=== PATIENT | female | born 1935 | race African-American/Black ===

== ENCOUNTER 2018-01-02 17:02 | Inpatient (IN) | payer OTHER ==
[2018-01-02] VITALS (8 sets, daily range): BP systolic 93–150; BP diastolic 54–73
[~2018-01-02] VITALS: Ht 165.1 cm; Wt 105.4 kg
--- NOTE | ~2018-01-02 | 2DMMODE ---
[facility] [address] [place] [address] 2 D/M-MODE ECHOCARDIOGRAM Name: SHANELLFLORENCE J Room #: 244-P ADM IN .R.#: [id number] Admission: 01/02/18 Attend Phys: Bryant Brandt MD Discharge: Date of : 35 Date of Service: 01/03/18 1419 Report #: [id number] THIS REPORT FOR: //name// APPROVED REPORT Study performed: 01/03/2018 08:11:27 EXAM: Comprehensive 2D, Doppler, and color-flow Echocardiogram Patient Location: ICU Room #: 244 Status: on-call BSA: 2.08 HR: 64 bpm BP: 130/57 mmHg Rhythm: NSR^Irregular Other Information Study Quality: Adequate Indications Afib. Hx: MT, CHF, DM 2D Dimensions RVDd: 45.05 mm IVSd: 12.58 (7-11mm) LVOT Diam: 20.68 (18-24mm) LVDd: 38.56 mm PWd: 12.24 (7-11mm) Ascending Ao: 34.74 (22-36mm) LVDs: 25.59 (25-40mm) Aortic Root: 34.38 mm Volumes Left Atrial Volume (Systole) Single Plane 4CH: 56.88 mL Single Plane 2CH: 83.94 mL LA ESV Index: 36.00 mL/m2 Aortic Valve AoV Peak Wesley.: 1.48 m/s AO Peak Gr.: 8.76 mmHg LVOT Max P.02 mmHg LVOT Max V: 1.00 m/s AMADA Vmax: 2.27 cm2 Mitral Valve E/A Ratio: 0.9 MV Decel. Time: 244.50 ms MV E Max Wesley.: 1.00 m/s [facility] [address] [place] [address] 2 D/M-MODE ECHOCARDIOGRAM Name: FLORENCE REECE Room #: 244-P [facility]#: [id number] Admission: 01/02/18 Attend Phys: Bryant Brandt MD Discharge: Date of : 35 Date of Service: 01/03/18 1419 Report #: [id number] MV A Wesley.: 1.16 m/s MV PHT: 70.90 ms IVRT: 73.82 ms Pulmonary Valve PV Peak Wesley.: 0.61 m/s PV Peak Gr.: 1.47 mmHg Tricuspid Valve TR Peak Wesley.: 3.32 m/s RAP Estimate: 15.00 mmHg TR Peak Gr.: 44.07 mmHg PA Pressure: 59.00 mmHg Left Ventricle The left ventricle is normal size. There is normal LV segmental wall motion. Mild concentric left ventricular hypertrophy. Left ventricular systolic function is normal. LVEF is 55%. Mild diastolic dysfunction is present (impaired relaxation pattern). Right Ventricle Right ventricle is dilated. Right ventricle is mildly hypokinetic. Atria Left atrium is dilated. Right atrium is dilated. Aortic Valve The aortic valve is normal in structure. Aortic valve leaflets are mildly thickened. No aortic regurgitation is present. There is no aortic valvular stenosis. Mitral Valve The mitral valve is normal in structure. There is no mitral valve regurgitation noted. No evidence of mitral valve stenosis. Tricuspid Valve The tricuspid valve is normal in structure. Mild to moderate tricuspid regurgitation. Estimated PAP is 55-60mmHg. Pulmonic Valve The pulmonary valve is normal in structure. Trace pulmonic regurgitation. Great Vessels The aortic root is normal in size. The ascending aorta is normal in size. IVC is dilated and collapses <50% with inspiration. [facility] [address] [place] [address] 2 D/M-MODE ECHOCARDIOGRAM Name: FLORENCE REECE Room #: 244-P [facility] IN ..#: [id number] Admission: 01/02/18 Attend Phys: Bryant Brandt MD Discharge: Date of : 35 Date of Service: 01/03/18 1419 Report #: [id number] Pericardium There is no pericardial effusion. <Conclusion> The left ventricle is normal size. Mild concentric left ventricular hypertrophy. Left ventricular systolic function is normal. LVEF is 55%. Right ventricle is dilated. Right ventricle is mildly hypokinetic. Left atrium is dilated. Right atrium is dilated. The aortic valve is normal in structure. Aortic valve leaflets are mildly thickened. No aortic regurgitation is present. There is no aortic valvular stenosis. The mitral valve is normal in structure. Mild to moderate tricuspid regurgitation. Estimated PAP is 55-60mmHg. IVC is dilated and collapses <50% with inspiration. There is no pericardial effusion. <ELECTRONICALLY SIGNED> By: Alber Santana MD 01/03/18 1419 141 141 Alber Santana MD /INF
--- NOTE | ~2018-01-02 | HC ---
[facility] [place] [address] CONSULTATION Name: FLORENCE REECE Room #: 244-P ADM IN M.R.#: [id number] Admission: 01/02/18 Attend Phys: Bryant Brandt MD Discharge: Date of : 35 Report #: [id number] THIS REPORT FOR: //name// CC: DEYANIRA Lozano REASON FOR CONSULTATION: The patient is an 82-year-old woman who presented with marked weakness and evidence of jaundice and dilated biliary tree. HISTORY OF PRESENT ILLNESS: This 82-year-old woman was seen in the Emergency Department. She was brought in by her family today because of generalized weakness. They have noted that over the past week or so, she has been much weaker than usual. She is not eating. She is complaining of more back pain than usual. She has not gotten out of bed in the past several days. They also report she has been confused. They note that she did have some chills earlier in the week. Her urine has been darker in color. She was brought to the Emergency Room at [facility] and evaluated. She was noted to be in atrial fibrillation with a rapid ventricular rate. She was noted to be jaundiced. LABORATORY DATA: Reveal a sodium of 139, potassium of 3.5, CO2 of 22. BUN is 44. In 2010, BUN was 33. Creatinine is 42. In 2010, her creatinine was 1.9. Her glucose is 121, AST of 115, ALT of 122, total bilirubin 11.1, alkaline phosphatase of 383. Albumin depressed at 2.4. Lactic acid is 6.8. Total CPK normal at 256. Troponin elevated at 2.1. BNP of 46,284. Coags were not done. White count of 33.9, platelet count of 81,000, hemoglobin 11.8 with an MCV of 91.8. TSH of 1.58. Urinalysis pending at this time. Blood cultures have been drawn. CT scan of the abdomen and pelvis was done without contrast. There are linear infiltrates in both lung bases, possibly representing atelectasis. There is a hyperdense structure in the head of the pancreas measuring 2 cm, which was thought to be within the common bile duct and may be a common bile duct stone. There is a marked intrahepatic and extrahepatic ductal dilatation with bile duct dilatation of 2.5 cm. Gallbladder is absent. Pancreas poorly evaluated. Spleen is normal. There is diverticulosis, but no evidence of diverticulitis. Uterus and appendix were thought to be surgically absent. 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 Also, note that much of history provided by the son. PAST MEDICAL HISTORY: Between the son and the patient, she notes to have a history of heart disease and she has had two heart attacks with the last in 2006, sons is not sure, but the patient thinks that she did have intracoronary stents placed. She may have been on Coumadin in the past, but has not been on [address] [address] CONSULTATION Name: FLORENCE REECE Room #: 244-P [facility] IN M.R.#: [id number] Admission: 01/02/18 Attend Phys: Bryant Brandt MD Discharge: Date of : 35 Report #: [id number] Coumadin recently. She is not sure if she has had AFib in the past. She has had some pulmonary problems in the past. She has a history of chronic kidney disease. She also has high blood pressure. She does have diabetes, but is currently on no medication and is diet controlled. She also has a history of neuropathy. In addition, she has a history of rheumatoid arthritis. Also, the patient reports that she has never previously had liver problems or hepatitis or jaundice. She has noted her urine has been dark orange for about a week or so and she has not noted this color before. PAST SURGICAL HISTORY: Cholecystectomy, appendectomy, hysterectomy. ALLERGIES: PENICILLIN. HOME MEDICATIONS: The patient cannot tell me her medicines, but the list obtained by the ER staff currently in the computer database includes amlodipine 5 mg daily, aspirin 81 mg daily, atorvastatin 40 mg at bedtime, benazepril 1 daily, Plavix 75 mg daily, fish oil 1000 mg daily, folic acid 1 mg daily, furosemide 40 mg daily, hydrocodone 10/325 four times a day as needed for pain, levothyroxine 25 mcg daily, lorazepam 0.5 mg 3 times daily, methotrexate 2.5 mg once weekly, Bystolic 10 mg daily, nitroglycerin as needed, Omeprazole 20 mg twice daily, Lyrica 1 tablet twice daily, vitamins, Zanaflex 4 mg at bedtime, Ambien 10 mg at bedtime. FAMILY HISTORY: The patient had 5 children. One daughter of lymphoma, another daughter of cancer and a son possibly of cancer and there was a mention of TB. SOCIAL HISTORY: Lives with son, but recently has been staying with her daughter. She quit smoking many years ago. She does not consume alcohol. REVIEW OF SYSTEMS: GENERAL: No change in weight. Family reported she had fevers earlier this week, but did not take her temperature. She had chills this week. HEENT: No change in vision, hearing or sores in the mouth. PULMONARY: Some shortness of breath. No history of pneumonia or tuberculosis. CARDIOVASCULAR: Previous heart disease. No chest pain or chest tightness at this time. GASTROINTESTINAL: No nausea or vomiting. No diarrhea or constipation. No rectal bleeding. She has not had abdominal pain. GENITOURINARY: Some burning with urination recently. GYNECOLOGIC: Previous hysterectomy. MUSCULOSKELETAL: Pain in back and multiple joints. SKIN: Sores on her upper extremities which has been chronic problem. ENDOCRINE: She has diabetes and thyroid disease. HEMATOLOGIC: No previous bleeding, bruising or malignancies. [facility] [address] [place] [address] CONSULTATION Name: FLORENCE REECE Room #: 244-P [facility] IN [facility]#: [id number] Admission: 01/02/18 Attend Phys: Bryant Brandt MD Discharge: Date of : 35 Report #: [id number] PSYCHIATRIC: Anxiety. PHYSICAL EXAMINATION: GENERAL: The patient is an obese woman who is awake. She is fairly alert, but appears to be fatigued, sometimes becomes fatigued just answering question. VITAL SIGNS: Blood pressure reported was 122/5 at her bedside, systolic in the 110s, heart rate on the monitor is AFib and rates as high as 145. She is in no acute distress. HEENT: She has marked bilateral icterus. Oropharynx moderately dry mucous membranes. NECK: Supple, without thyromegaly. CHEST: Clear anteriorly. HEART: Tachycardic, irregular rhythm. S1, S2. ABDOMEN: Normal bowel sounds, soft. I do not appreciate significant tenderness to palpation in the right upper quadrant. Abdomen is obese, but I did not appreciate any masses. RECTAL: Not done. EXTREMITIES: With 1+ bilateral pedal edema, nontender to palpation. SKIN: Reveals that she has excoriations on her upper extremities. The son notes that she picks the spots on her arms and this has been a chronic problem LABORATORY DATE AND RADIOLOGY: As noted above. ASSESSMENT: 1. Biliary sepsis. 2. Dilated biliary tract with evidence of a common bile duct stone. 3. Chronic kidney disease with likely acute injury. 4. Diabetes, diet controlled. 5. Hypothyroidism. 6. Rheumatoid arthritis, on methotrexate. COMMENTS: The patient very ill at this point in time. She will likely need intervention, but will need to stabilize her heart rhythm and blood pressure. RECOMMENDATIONS: 1. Agree with ICU care. 2. Agree with broad-spectrum antibiotics. Discussed with ER physician who has been in contact with Dr. Alli Wagner. 3. Monitor labs. 4. Review radiologic studies with radiologist. 5. Consider ERCP, but will need to have her cardiovascular status stabilized and cardiology clearance prior to any procedures requiring sedation and alternative with the percutaneous transhepatic chol[place] [address] CONSULTATION Name: FLORENCE REECE Room #: 244-P [facility] IN [facility].#: [id number] Admission: 01/02/18 Attend Phys: Bryant Brandt MD Discharge: Date of : 35 Report #: [id number] addressing bile duct stone at a later date. 6. Monitor coags. <ELECTRONICALLY SIGNED> By: Jigar Esparza MD 01/03/18 1553 2205 0030 Jigar Esparza MD /nt
--- NOTE | ~2018-01-02 | EKG ---
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: [facility] : 1935 Requested By: Alli German Order Number: [id number] MD: Alber Santana Measurements Intervals [place] Rate: 150 P: 30 AL: 147 QRS: -3 QRSD: 93 T: -24 QT: 301 QTc: 476 Interpretive Statements Supraventricular tachycardia, likely atrial tachycardia Low voltage, precordial leads Left ventricular hypertrophy Borderline T abnormalities, diffuse leads Compared to ECG 11/09/2009 07:47:58 Low QRS voltage now present Left ventricular hypertrophy now present Sinus rhythm no longer present Possible ischemia no longer present T-wave abnormality still present Electronically Signed On 01-04-2018 20:20:19 CONTRACT SERVICEMAN by Alber Santana [email or web address] <ELECTRONICALLY SIGNED> By: Alber Santana MD 01/04/182019 173 173 Alber Santana MD /EPI
--- NOTE | ~2018-01-02 | EKG ---
[address] [address] ELECTROCARDIOGRAM REPORT Name: SHANELLFLORENCE Room #: 244-P ADM IN M.R.#: [id number] Admission: 01/02/18 Attend Phys: Bryant Brandt MD Discharge: Date of : 35 Report #: [id number] THIS REPORT FOR: //name// [facility] Test Date: 2018-01-04 Test Time: 09:29:58 Pat Name: FLORENCE REECE Department: Room: 244 P Gender: F Coun[employer]: akanksha : 1935 Requested By: Bryant Brandt Order Number: [id number] MD: Alber Santana Measurements Intervals [place] Rate: 67 P: 43 [place]: 180 QRS: 6 QRSD: 120 T: -29 QT: 409 QTc: 432 Interpretive Statements Sinus rhythm Atrial premature complex Nonspecific intraventricular conduction delay Probable anterior infarct, age indeterminate Compared to ECG 11/09/2009 07:47:58 Electronically Signed On 01-04-2018 20:48:00 ELEVATED MOTORMAN by Alber Santana [email or web address] <ELECTRONICALLY SIGNED> By: Alber Santana MD 01/04/182047 8 8 Alber Santana MD /FE
--- NOTE | ~2018-01-02 | EKG ---
[address] [address] ELECTROCARDIOGRAM REPORT Name: SHANELLFLORENCE Room #: 244- ADM IN M.R.#: [id number] Admission: 01/02/18 Attend Phys: Bryant Brandt MD Discharge: Date of : 35 Report #: [id number] THIS REPORT FOR: //name// [facility] Test Date: 2018-01-03 Test Time: 13:10:39 Pat Name: FLORENCE REECE Department: Room: 244 Gender: F Log Sorter: BRIANA : 1935 Requested By: Alber Santana Order Number: [id number] MD: Alber Santana Measurements Intervals [place] Rate: 59 P: 29 [place]: 169 QRS: 4 QRSD: 107 T: -23 QT: 465 QTc: 461 Interpretive Statements Sinus rhythm Low voltage, precordial leads Nonspecific T abnormalities, diffuse leads Compared to ECG 11/09/2009 07:47:58 Low QRS voltage now present Possible ischemia no longer present T-wave abnormality still present Electronically Signed On 01-04-2018 20:39:50 COPY AND PRINT ASSOCIATE by Alber Santana [email or web address] <ELECTRONICALLY SIGNED> By: Alber Santana MD 01/04/189 1310 09 Alber Santana MD /EPI
--- NOTE | ~2018-01-02 | HC ---
[facility] [place] [address] CONSULTATION Name: FLORENCE REECE Mango Room #: 244-P [facility] IN M.R.#: [id number] Admission: 01/02/18 Attend Phys: Bryant Brandt MD Discharge: Date of : 35 Report #: [id number] THIS REPORT FOR: //name// CC: Marilee Brandt DATE OF SERVICE: 01/03/2018 REASON FOR CONSULTATION: Evaluate sepsis and cholangitis. HISTORY OF PRESENT ILLNESS: The patient was an 82-year-old who was brought into the Emergency Room with approximately 1 week of general debility with associated anorexia, abdominal discomfort, some confusion, dark urine, intermittent chills. She has had no gross vomiting episodes or diarrhea. Did not describe much abdominal pain. Has a previous history of cholecystectomy several years ago. No history of pancreatitis or underlying liver disease. Brought in through the Emergency Room where she was found to be in atrial fibrillation with rapid ventricular response and hypotensive. She had decreased urine output. Received 3 liters of fluid overnight. Still is oliguric. She was icteric. Placed initially on vancomycin, Levaquin, metronidazole that was switched to meropenem. CT scan of the abdomen and pelvis showed common bile duct stone with biliary duct dilatation. The patient also is on methotrexate for rheumatoid arthritis. REVIEW OF SYSTEMS: CONSTITUTIONAL: As above. EYES: No change in her hearing. No oral mucosal lesions. Denies any rash or skin issues other than neurodermatitis to her upper arms. LYMPHATIC: Negative. PULMONARY: Negative. CARDIOVASCULAR: As above. GASTROINTESTINAL: As above. GENITOURINARY: Negative. JOINT: Arthritis symptoms remain stable. NEUROLOGIC: Negative. PSYCHIATRIC: Negative. HEMATOLOGIC: Negative. ALLERGIES: REPORTS ALLERGY TO PENICILLIN. No recent antibiotics. ALLERGIES: TO PENICILLIN WITH RASH. Does not know if she tolerates cephalosporins. MEDICATIONS: As noted on her APR, which were reviewed. Now on vancomycin and meropenem. PAST MEDICAL HISTORY: Cholecystectomy, appendectomy, hysterectomy, atrial fibrillation, coronary artery disease, chronic kidney disease, hypertension, [facility] [address] [place] [address] CONSULTATION Name: SHANELLFLORENCE Room #: 244-P [facility] IN [facility].#: [id number] Admission: 01/02/18 Attend Phys: Bryant Brandt MD Discharge: Date of : 35 Report #: [id number] diabetes, hypothyroidism, peripheral neuropathy, rheumatoid arthritis. FAMILY HISTORY: Noncontributory. SOCIAL HISTORY: Past smoker, no significant alcohol intake. Lives with her son. PHYSICAL EXAMINATION: GENERAL: The patient is now in the Intensive Care Unit. Oxygen per nasal cannula was in place. She was alert and cooperative and a reasonable historian. She appeared her stated age. She was lying in bed. VITAL SIGNS: Temperature was 99.8, blood pressure 130/57, pulse 69. Maximum temperature was 102.8 earlier last evening. She is on 2 liters of oxygen per nasal cannula. HEENT: Icteric. Mouth without mucositis or lesion. NECK: Supple, with right IJ catheter in place. No JVD or thyromegaly. LUNGS: Clear anteriorly. Few crackles in the bases bilaterally. CARDIOVASCULAR: Heart was regular, without murmur, gallop or rub. ABDOMEN: Obese, tender in the right upper quadrant. No hepatosplenomegaly or mass appreciated. No guarding or rebound. Positive bowel sounds. EXTREMITIES: 1+ peripheral edema in lower extremities. No cyanosis. No palpable adenopathy. SKIN: With several excoriations to her upper arms. Mood was normal. NEUROLOGIC: Cranial nerves intact. Strength in upper and lower extremities was nonfocal. Sensation intact upper and lower extremities. BACK: Spine was midline. No percussion tenderness. LABORATORY STUDIES: Blood cultures, gram-negative bacilli and gram-positive bacilli. Hemoglobin 9.8, platelet count was 65,000, white count 30,000, 86% segs, 9% bands. Sodium 137, potassium 4.5, bicarbonate 23, creatinine 3.5, bilirubin 9.7, alkaline phosphatase 292, AST 89, ALT 84. Urinalysis with positive protein and bilirubin. Lactate initially 6.8, now 1.0. CT scan of the abdomen and pelvis showed common bile duct obstruction with stone and hepatic duct dilatation. IMPRESSION: 1. Acute cholangitis with sepsis, cardiac ischemia, acute kidney injury, disseminated intravascular coagulation. This is due to common bile duct stone. 2. Immunosuppressed on methotrexate for rheumatoid arthritis. 3. Atrial fibrillation with rapid ventricular response along with elevated troponin and BNP, concerning for ischemia. 4. Diabetes. 5. Obesity. 6. Acute on chronic kidney disease. 7. PENICILLIN ALLERGY. [facility] [address] [place] [address] CONSULTATION Name: FLORENCE REECE Room #: 244-P ADM IN M.R.#: [id number] Admission: 01/02/18 Attend Phys: Bryant Brandt MD Discharge: Date of : 35 Report #: [id number] RECOMMENDATION: 1. We will continue ICU support with increased fluid resuscitation. Maintain n.p.o. status. GI service to evaluate for ERCP. If not able to perform, we do percutaneous cholangiogram to relieve obstruction. 2. Control diabetes. 3. Control atrial fibrillation with rapid ventricular response. 4. Cardiovascular, Medicine to evaluate. 5. Control blood glucose levels. 6. Have adjusted her antibiotics for her PENICILLIN ALLERGY. We will continue with drugs adjusted for her renal failure. <ELECTRONICALLY SIGNED> By: Alli Wagner MD 01/04/18 1133 1156 1317 Alli Wagner MD /nt
--- NOTE | ~2018-01-02 | P ---
[facility] [place] [address] PROCEDURE REPORT Name: FLORENCE REECE Room #: 459-P [facility] IN M.R.#: [id number] Admission: 01/02/18 Attend Phys: Bryant Brandt MD Discharge: Date of : 35 Report #: [id number] THIS REPORT FOR: //name// CC: DEYANIRA Lozano BRIEF HISTORY: The patient is an 82-year-old woman with biliary sepsis and evidence of a large 2 cm stone in distal common duct with markedly dilated intrahepatic and extrahepatic biliary. She has been admitted to intensive care unit. She has been treated with antibiotics. She is stabilized and brought to the OR today for ERCP for stone extraction. PREOPERATIVE DIAGNOSES: 1. Biliary sepsis. 2. Choledocholithiasis. POSTOPERATIVE DIAGNOSES: 1. Choledocholithiasis. 2. 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 3. Dilated intrahepatic and extrahepatic biliary tree secondary to choledocholithiasis. MEDICATIONS: Intubation general anesthesia. SPECIMEN: Multiple fragments and debris were removed from the biliary tree and left in the duodenum. ESTIMATED BLOOD LOSS: None. PROCEDURE: ERCP with stone extraction and stent placement. FINDINGS: Prior to intubation general anesthesia, the procedure of ERCP and stone extraction was discussed with the patient as well as potential risks and its complications. She indicates she understands and desires to proceed. DESCRIPTION OF PROCEDURE: The patient was taken to the Operating Suite and general anesthesia was induced and she was intubated. Subsequently, the Olympus side-viewing endoscope was inserted in cervical esophagus, guided through the esophagus, through the stomach and up to the pylorus. With minimal difficulty, the scope was advanced over the pylorus and into the duodenum. The papilla was identified. It was apparent that the patient has had a previous endoscopic sphincterotomy and this had been known to me. There was essentially no bile in the duodenum. We cannulated with a 0.035 sphincterotome and it passed easily into the biliary tree and passed a stone. As soon as it passed the sphincterotome, purulent material came oozing across the sphincterotomized orifice of the papilla. We injected contrast and indeed there was a large [facility] [address] [place] [address] PROCEDURE REPORT Name: FLORENCE REECE Room #: 459-P ADM IN M.R.#: [id number] Admission: 01/02/18 Attend Phys: Bryant Brandt MD Discharge: Date of : 35 Report #: [id number] filling defect occupying the distal common bile duct just above the papilla. Proximally, the bile ducts were markedly dilated. Only one very large filling defect was seen. A guidewire was inserted deeply into the biliary tree. The sphincterotome was passed easily in and out on multiple occasions and more purulent material and stone debris, which was mostly cholesterol type material with a few small black fragments, came oozing from the duct. This was done with several passes. We then inserted a 2.5 cm basket into the biliary tree and above the stone, we made multiple passes. As we made the passes, debris was extracted with each pass of the basket. This was probably a conglomeration of multiple smaller stones and we brought the basket in and out through multiple passes, a large amount of debris and small stone material was pulled out of the duct. Purulent material continued to drain. Finally, after multiple passes, we no longer retrieved a material. We then recannulated with a balloon catheter and injected contrast and the stone bolus had moved into the mid biliary tree. It was no longer completely obstructing at this point. We filled the balloon up to 20 mm which essentially filled the common intrahepatic duct in terms of diameter. We pulled the balloon in and out on several occasions and the conglomeration of stone material broke into multiple smaller pieces. We pulled the balloon through on a number of passes and obtained more debris from the biliary tree. After making multiple passes, we inserted a smaller basket, a 1.5 cm basket and made multiple passes with a smaller basket and indeed obtained additional material. However, as the amount of debris became less, it became more difficult to engage debris and the basket. After multiple passes, it was felt best to place a double pigtail stents and have her return at a later date for further evaluation of the duct and removal of stent and any residual material. We subsequently inserted a 7-[place] 7 cm double pigtail stent in the biliary tree. It was deployed without difficulty. The pigtail deployed well in the lumen of the duodenum. The scope was withdrawn. The patient tolerated the procedure well. DISPOSITION: The patient with biliary sepsis related to biliary obstruction secondary to conglomeration of stone debris and sludge in the distal duct. Much of the debris was cleared from the duct today. There was good drainage from the duct. Continue her current care with the antibiotic coverage. We will have her return in about 6-8 weeks for repeat ERCP with removal of stent and evaluation for any further debris in the biliary tree. <ELECTRONICALLY SIGNED> By: Jigar Esparza MD 01/05/182026 1122 09 Jigar Esparza MD /nt
--- NOTE | ~2018-01-02 | HC ---
[facility] [place] [address] CONSULTATION Name: FLORENCE REECE Room #: 244-P ADM IN M.R.#: [id number] Admission: 01/02/18 Attend Phys: Bryant Brandt MD Discharge: Date of : 35 Report #: [id number] THIS REPORT FOR: //name// CC: Marilee Brandt REASON FOR CONSULTATION: Atrial fibrillation and a positive troponin. HISTORY OF PRESENT ILLNESS: The patient is an 82-year-old with a history of possible coronary artery disease and prior stenting per report as well as neuropathy, diabetes who presented with worsening nausea, abdominal pain and decreased appetite and was diagnosed with biliary sepsis. When she came to the ER, she was also found to be in a supraventricular tachycardia. I reviewed the 12-lead EKG. It appears that she was in atrial tachycardia, heart rate of 150 beats per minute and would terminate the sinus. She received IV diltiazem and then was given some digoxin and IV amiodarone due to rapid rates. It appears that she converted to sinus overnight. Today, she denies any chest pain or chest tightness nor has she had any at home. She denies PND or orthopnea. She denies presyncope or syncope. REVIEW OF SYSTEMS: A 12-point review of systems was performed and in general, she has had some fevers or chills. HEENT: No blurred vision. CARDIOVASCULAR: As above. PULMONARY: No productive cough. GASTROINTESTINAL: She has had nausea, vomiting, abdominal pain. GENITOURINARY: No dysuria. MUSCULOSKELETAL: No myalgias or arthralgias. ENDOCRINE: No heat or cold intolerance. PAST MEDICAL HISTORY: 1. CHF. 2. UT, status post stents. 3. Neuropathy. 4. Diabetes. SOCIAL HISTORY: Does not smoke. FAMILY HISTORY: Noncontributory. ALLERGIES: INCLUDE PHENOBARBITAL AND PENICILLIN. PHYSICAL EXAMINATION: VITAL SIGNS: T-max was 39.3, pulse 60, respiration 20, blood pressure 130/57, sats 98%. GENERAL: She is in no acute distress. HEENT: Oropharynx clear. [facility] [address] [place] [address] CONSULTATION Name: SHANELLFLORENCE Room #: 244-P [facility] IN ..#: [id number] Admission: 01/02/18 Attend Phys: Bryant Brandt MD Discharge: Date of : 35 Report #: [id number] NECK: Supple, with no thyromegaly. HEART: Regular rate and rhythm. LUNGS: Clear to auscultation bilaterally. ABDOMEN: Soft, nontender, nondistended, no hepatosplenomegaly. EXTREMITIES: No clubbing, cyanosis, edema. NEUROLOGIC: Cranial nerves 2-12 are intact. LABORATORY DATA: White count is 30, hemoglobin 9, platelets low at 65. Coags: INR is 1.3. Chemistry: Sodium 137, potassium 3.5, BUN 47, creatinine 3.5, improved from 4.2. Troponin was 2.0 and is decreased to 1.2, proBNP is 46,284, T-bili 9.7, AST 89, ALT 84, alkaline phosphatase 292. Lactate was 6.8 and is improved to 1. EKG showed SVT, likely atrial tachycardia with conversion to sinus. Heart rate was 150. There was no ischemia noted on the EKG. ASSESSMENT: 1. Elevated troponin. 2. Atrial tachycardia versus atrial fibrillation. 3. History of coronary artery disease. 4. History of possible congestive heart failure. SUMMARY: The patient is an 82-year-old presenting with biliary sepsis. She was found to be in atrial fibrillation versus atrial tachycardia and this is now converted. Perhaps this was due to her infection and is now resolved, now that she is on antibiotics. We will stop rate control medications, but if she were to go back in to SVT or AFib again, then we could consider resuming the diltiazem drip and perhaps starting her on some amiodarone to suppress further atrial arrhythmias. With regards to her elevated troponin, there is no evidence of ischemia on her EKG and this was likely due to her sepsis and her SVT. I do not think the stress testing is required for further evaluation. I would recommend that we obtain an echocardiogram. We will continue to follow. By: [id number] [id number] Alber Santana MD /nt
[~2018-01-02 17:02] MED LIST: ADULT LOW DOSE81 MG PO; ALDACTONE50 MG PO; AMBIEN 10 MG TA10 MG PO; ASPIR 8181 MG PO; ATIVAN; ATIVAN0.5 MG PO; BENAZEPRIL HCL40 MG PO; BYSTOLIC 5 MG5 M1 PO; BYSTOLIC10 MG PO; CARISOPRODOL 3350 MG PO; FISH OIL 1,0001 EAC5 PO; FISHOIL PO; FOLIC ACID1 MG PO; FUROSEMIDE 40 M40 M1 PO; GLUCOPHAGE500 MG PO; HYDROCODONE-AP1 EAC6 PO; HYDROCODONE-AP1 EACH PO; LEVOTHROID25 MCG PO; LIPITOR40 MG PO; LOTREL 5-40 MG1 EACH; LYRICA 50 MG50 MG PO; LYRICA100 MG; LYRICA100 MG PO; MELOXICAM7.5 MG PO; METHOTREXATE; NITROGLYCERIN0.4 MG SUBLING; NORCO 5-325 TA1 EACH PO; NORVASC5 MG PO; OMEPRAZOLE20 MG PO; PLAVIX 75 MG TA75 MG PO; PRENATAL PO; RHEUMATREX2.5 MG PO; VICODIN 5-5001 EACH PO; VITAMIN D400 UNI1; ZANAFLEX4 MG PO
[2018-01-02 18:50] LABS: ABSOLUTE NEUTROPHILS 22.2 thou/uL (1.4-8.2); BASOPHILS 0.1 % (0.0-2.0); HEMATOCRIT 35.3 % (37.0-47.0); HEMOGLOBIN 11.8 gm/dL (12.0-15.0); LYMPHOCYTES 3.4 % (24.0-44.0); MCH 30.7 pg (26.0-34.0); MCHC 33.5 g/dL (28.0-37.0); MCV 91.8 fL (80.0-100.0); MONOCYTES 1.9 % (1.0-8.0); PLATELET COUNT 81 thou/uL (150-400); RBC 3.85 mil/uL (4.20-5.00); RDW 16.1 % (10.5-14.5); WBC 33.9 thou/uL (4.0-11.0)
[2018-01-02 19:05] LABS: CALCIUM 8.9 mg/dL (8.5-10.1); CREATININE 4.2 mg/dL (0.6-1.0); POTASSIUM 3.5 mmol/L (3.5-5.1)
[2018-01-02 19:14] LABS: ALBUMIN 2.4 g/dL (3.4-5.0); MAGNESIUM 1.3 mg/dL (1.8-2.4); TOTAL BILIRUBIN 11.1 mg/dL (<0.1-1.0); TOTAL PROTEIN 7.4 g/dL (6.4-8.2)
[2018-01-02 19:17] LABS: TROPONIN-I 2.01 ng/mL (<0.06)
[2018-01-02 20:02] LABS: POLYS 94.6 % (36.0-66.0)
[2018-01-02 22:34] LABS: INR 1.3; PROTIME 13.3 Seconds (9.3-11.4)
[2018-01-03] VITALS (38 sets, daily range): BP systolic 95–170; BP diastolic 39–94
[2018-01-03 01:26] LABS: URINE BILIRUBIN 3+ (Negative); URINE BLOOD 3+ (Negative); URINE CLARITY TURBID; URINE COLOR YELLOW; URINE GLUCOSE-RANDOM* NEGATIVE (Negative); URINE KETONES TRACE (Negative); URINE LEUKOCYTES-REFLEX NEGATIVE (Negative); URINE NITRITE-REFLEX NEGATIVE (Negative); URINE PROTEIN (DIPSTICK) 2+ (Negative); URINE SPECIFIC GRAVITY 1.025 (1.005-1.035)
[2018-01-03 01:42] LABS: ICTOTEST (BILI CONFIRMATORY) Positive (Negative)
[2018-01-03 02:19] LABS: AMORPHOUS URATES Many /LPF (None Seen); SQUAMOUS 4-10 Moderate /LPF (0-3); URINE RBC 3-10 Few /HPF (0-2); URINE WBC-REFLEX 0-5 Rare /HPF (0-5)
[2018-01-03 02:20] LABS: BACTERIA-REFLEX 1-9 Few /HPF (None Seen); CASTS None Seen /LPF (None Seen); CRYSTALS None Seen /LPF (None Seen)
[2018-01-03 04:58] LABS: HEMATOCRIT 30.3 % (37.0-47.0); MCH 30.5 pg (26.0-34.0); MCHC 32.4 g/dL (28.0-37.0); MCV 94.2 fL (80.0-100.0); PLATELET COUNT 65 thou/uL (150-400); RBC 3.22 mil/uL (4.20-5.00); RDW 16.6 % (10.5-14.5); WBC 30.5 thou/uL (4.0-11.0)
[2018-01-03 05:12] LABS: ALBUMIN 1.7 g/dL (3.4-5.0); CALCIUM 7.3 mg/dL (8.5-10.1); CREATININE 3.5 mg/dL (0.6-1.0); POTASSIUM 3.5 mmol/L (3.5-5.1); TOTAL BILIRUBIN 9.7 mg/dL (<0.1-1.0)
[2018-01-03 05:19] LABS: HEMOGLOBIN 9.8 gm/dL (12.0-15.0); TROPONIN-I 1.12 ng/mL (<0.06)
[2018-01-03 05:19] LABS: INR 1.3
[2018-01-03 09:04] LABS: ANISOCYTOSIS 1+
[2018-01-04] VITALS (21 sets, daily range): BP systolic 129–186; BP diastolic 51–88
[2018-01-04 04:53] LABS: HEMATOCRIT 33.2 % (37.0-47.0); HEMOGLOBIN 10.8 gm/dL (12.0-15.0); MCH 30.3 pg (26.0-34.0); MCHC 32.5 g/dL (28.0-37.0); RBC 3.56 mil/uL (4.20-5.00); RDW 16.5 % (10.5-14.5); WBC 22.8 thou/uL (4.0-11.0)
[2018-01-04 05:06] LABS: ALBUMIN 1.7 g/dL (3.4-5.0); CALCIUM 7.7 mg/dL (8.5-10.1); CREATININE 3.3 mg/dL (0.6-1.0); POTASSIUM 3.6 mmol/L (3.5-5.1); TOTAL BILIRUBIN 9.8 mg/dL (<0.1-1.0); TOTAL PROTEIN 6.4 g/dL (6.4-8.2)
[2018-01-05 00:32] VITALS: BP 158/55
[2018-01-05 01:09] VITALS: BP 155/60
[2018-01-05 04:32] VITALS: BP 150/61
[2018-01-05 05:30] LABS: HEMATOCRIT 31.7 % (37.0-47.0); HEMOGLOBIN 10.3 gm/dL (12.0-15.0); MCH 29.8 pg (26.0-34.0); MCHC 32.5 g/dL (28.0-37.0); MCV 91.8 fL (80.0-100.0); RBC 3.46 mil/uL (4.20-5.00); RDW 16.7 % (10.5-14.5); WBC 13.1 thou/uL (4.0-11.0)
[2018-01-05 05:56] LABS: ALBUMIN 1.7 g/dL (3.4-5.0); DIRECT BILIRUBIN 5.9 mg/dL (<0.1-0.3); TOTAL BILIRUBIN 6.7 mg/dL (<0.1-1.0)
[2018-01-05 06:12] LABS: TOTAL PROTEIN 6.5 g/dL (6.4-8.2)
[2018-01-05 08:09] LABS: CALCIUM 7.9 mg/dL (8.5-10.1); CREATININE 2.8 mg/dL (0.6-1.0); POTASSIUM 3.7 mmol/L (3.5-5.1)
[2018-01-05 10:30] VITALS: BP 157/71
[2018-01-06 00:28] VITALS: BP 151/71
[2018-01-06 03:49] VITALS: BP 168/81
[2018-01-06 06:00] LABS: HEMATOCRIT 30.8 % (37.0-47.0); HEMOGLOBIN 10.1 gm/dL (12.0-15.0); MCH 29.9 pg (26.0-34.0); MCHC 32.8 g/dL (28.0-37.0); MCV 91.2 fL (80.0-100.0); RBC 3.38 mil/uL (4.20-5.00); RDW 16.1 % (10.5-14.5); WBC 15.2 thou/uL (4.0-11.0)
[2018-01-06 06:17] LABS: ALBUMIN 1.7 g/dL (3.4-5.0); CALCIUM 8.5 mg/dL (8.5-10.1); CREATININE 2.3 mg/dL (0.6-1.0); POTASSIUM 3.5 mmol/L (3.5-5.1); TOTAL BILIRUBIN 3.9 mg/dL (<0.1-1.0); TOTAL PROTEIN 6.3 g/dL (6.4-8.2)
[2018-01-06 08:00] VITALS: BP 153/67
[2018-01-06 16:00] VITALS: BP 154/62
[2018-01-06 19:43] VITALS: BP 155/77
[2018-01-07 02:00] VITALS: BP 153/64
[2018-01-07 03:25] LABS: HEMATOCRIT 30.7 % (37.0-47.0); HEMOGLOBIN 9.9 gm/dL (12.0-15.0); MCH 29.2 pg (26.0-34.0); MCHC 32.2 g/dL (28.0-37.0); MCV 90.8 fL (80.0-100.0); PLATELET COUNT 159 thou/uL (150-400); RBC 3.38 mil/uL (4.20-5.00); RDW 16.6 % (10.5-14.5)
[2018-01-07 03:56] LABS: ALBUMIN 1.8 g/dL (3.4-5.0); CALCIUM 7.9 mg/dL (8.5-10.1); CREATININE 1.9 mg/dL (0.6-1.0); POTASSIUM 3.5 mmol/L (3.5-5.1); TOTAL BILIRUBIN 3.1 mg/dL (<0.1-1.0); TOTAL PROTEIN 6.2 g/dL (6.4-8.2)
[2018-01-07 04:45] LABS: ABSOLUTE NEUTROPHILS 12.5 thou/uL (1.4-8.2); ANISOCYTOSIS 1+; METAMYELOCYTES 1 %
[2018-01-07 04:46] LABS: POLYCHROMASIA SLIGHT
[2018-01-07 07:50] VITALS: BP 153/65
[2018-01-07] MEDS ORDERED: MEROPENEM-500 MG/50 IVPB (14:21)
[2018-01-07 16:06] VITALS: BP 153/65
[2018-01-07 16:26] VITALS: BP 153/65
== END 2018-01-07 19:00 | DRG 871 ==
LOC: ER 17:02 → ICU 20:43 → EROBS 20:43 → 4W 20:43 → ICU 22:36 → 4W 01-05 09:32
PROVIDERS: Emergency Medicine; Hospitalist; Nurse Practitioner; Specialist
DX: A41.9 Sepsis, unspecified organism (principal); I21.4 Non-ST elevation (NSTEMI) myocardial infarction; R65.21 Severe sepsis with septic shock; K80.33 Calculus of bile duct with acute cholangitis with obstruction; I48.92 Unspecified atrial flutter; N17.9 Acute kidney failure, unspecified; I13.0 Hypertensive heart and chronic kidney disease with heart failure and stage 1 through stage 4 chronic kidney disease, or unspecified chronic kidney disease; I47.1 Supraventricular tachycardia; E80.6 Other disorders of bilirubin metabolism; R74.0 Nonspecific elevation of levels of transaminase and lactic acid dehydrogenase [LDH]; E11.22 Type 2 diabetes mellitus with diabetic chronic kidney disease; M06.9 Rheumatoid arthritis, unspecified; E03.9 Hypothyroidism, unspecified; I25.10 Atherosclerotic heart disease of native coronary artery without angina pectoris; E11.42 Type 2 diabetes mellitus with diabetic polyneuropathy; I25.9 Chronic ischemic heart disease, unspecified; E66.9 Obesity, unspecified; M62.84 Sarcopenia; I50.9 Heart failure, unspecified; N18.3 Chronic kidney disease, stage 3 (moderate); E83.42 Hypomagnesemia; I48.0 Paroxysmal atrial fibrillation; Z88.0 Allergy status to penicillin; Z90.49 Acquired absence of other specified parts of digestive tract; Z90.710 Acquired absence of both cervix and uterus; Z80.8 Family history of malignant neoplasm of other organs or systems; Z87.891 Personal history of nicotine dependence; I25.2 Old myocardial infarction; Z95.5 Presence of coronary angioplasty implant and graft; Z68.38 Body mass index [BMI] 38.0-38.9, adult; Z82.3 Family history of stroke
CPT/HCPCS: 10045; 10078; 62110; 62900; 70005

== ENCOUNTER → 2018-01-15 | Outpatient (CLI) | payer OTHER ==
[~2018-01-15] MED LIST changes: +MEROPENEM-500 MG/50 IVPB
[2018-01-15 11:03] VITALS: BP 151/80
[2018-01-15 13:17] LABS: ALBUMIN 2.3 g/dL (3.4-5.0); CALCIUM 7.6 mg/dL (8.5-10.1); CREATININE 1.3 mg/dL (0.6-1.0); POTASSIUM 3.8 mmol/L (3.5-5.1); TOTAL BILIRUBIN 1.2 mg/dL (<0.1-1.0); TOTAL PROTEIN 6.9 g/dL (6.4-8.2)
== END ==
LOC: OPONC 01-12 08:16
PROVIDERS: Specialist
DX: K80.33 Calculus of bile duct with acute cholangitis with obstruction (principal); R78.81 Bacteremia; I21.4 Non-ST elevation (NSTEMI) myocardial infarction
CPT/HCPCS: 91022